=== PATIENT | male | born 1965 | race Caucasian/White ===

== ENCOUNTER 2019-09-02 20:39 | Inpatient (IN) | payer BC, SELFPAY ==
--- NOTE | ~2019-09-02 | XR_ITS ---
EXAMINATION: XR chest 1V portable EXAM DATE: 09/02/2019 21:25 INDICATION: Cough, fever and weakness. TECHNIQUE: Portable AP frontal chest x-ray was obtained. There is no prior study for comparison. FINDINGS: The lungs are clear. There are no pleural effusions. The cardiomediastinal silhouette is within normal limits. There is no pneumothorax suspected. The bones and soft tissues are unremarkab le. IMPRESSION: No acute cardiopulmonary findings. Reviewed, dictated and finalized at location A.
[2019-09-02 20:41] VITALS: BP 114/69; PULSE 99; RESP 16; TEMP 38.5; O2SAT 98
[2019-09-02 21:23] LABS: Hemoglobin 14.4 g/dL (14.0-18.0); Mean Corpuscular Hemoglobin 29.6 pg (26-34); Mean Corpuscular Volume 92.4 fl (80-100); Platelet Count Result 177 k/mm3 (150-375); Red Blood Count 4.87 M/mm3 (4.6-6.20); Red Cell Distribution Width 13.1 % (11.5-14.5); White Blood Count 20.9 K/mm3 (4.5-10.0)
--- NOTE | 2019-09-02 21:23 | ED.FEVER ---
HPI - Fever General Chief Complaint: Fever <MONIE Kong Last Filed: 09/02/19 23:47> Stated Complaint: fever weak <MONIE Kong Last Filed: 09/02/19 23:47> Time Seen by Provider: 09/02/19 20:54 <Janene Swift PA-C - Last Filed: 09/02/19 23:47> Source: patient <MONIE Kong Last Filed: 09/02/19 23:47> Mode of arrival: EMS <MONIE Kong Last Filed: 09/02/19 23:47> Limitations: no limitations <MONIE Kong Last Filed: 09/02/19 23:47> History of Present Illness HPI Narrative: This is a 53 year old male that presents to the ER for fever/chills x3 days. Also reports generlized weakness. Reports a cough today and some sore throat. Reports he has to self cath due to spinal cord injury and that his urine looks darker. Denies chest pain, shortness of breath, abdominal pain, or vomiting. <MONIE Kong Last Filed: 09/02/19 23:47> Related Data Home Medications: Home Medications Medication Instructions Recorded Confirmed Toviaz 8 mg PO DAILY 09/02/19 09/03/19 diazepam 5 mg PO QID PRN 09/02/19 09/03/19 duloxetine 60 mg PO DAILY 09/02/19 09/03/19 <MONIE Kong Last Filed: 09/02/19 23:47> Allergies/Adverse Reactions: Allergies Allergy/AdvReac Type Severity Reaction Status Date / Time No Known Allergies Allergy Verified 09/02/19 20:53 <MONIE Kong Last Filed: 09/02/19 23:47> Review of Systems Review of Systems: Narrative: CONSTITUTIONAL: Report fever, chills ENT: Reports sore throat. Denies rhinorrhea, congestion CARDIOVASCULAR: Denies chest pain RESPIRATORY: Reports cough. Denies dyspnea. GASTROINTESTINAL: Denies abdominal pain, nausea, vomiting, or diarrhea. GENITOURINARY: Denies dysuria or hematuria. SKIN: Denies rash NEUROLOGIC: Reports weakness. <Janene Swift PA-C - Last Filed: 09/02/19 23:47> All systems reviewed & are unremarkable except as noted in HPI and below <Janene Swift PA-C - Last Filed: 09/02/19 23:47> PMFSH Past Medical History Medical History: Medical History Paraplegia <Janene Swift PA-C - Last Filed: 09/02/19 23:47> Family History Family History: Family History Father Hypertension Father Acute myocardial infarction Sibling Hypertension <Janene Swift PA-C - Last Filed: 09/02/19 23:47> Social History Social History: Social History Smoking status: Never smoker Substance use: never Substance use type: does not use Gender identity (if verbalized by the patient): Male Spiritual care concerns: No Agree to blood products: Yes <Janene Swift PA-C - Last Filed: 09/02/19 23:47> Exam Narrative: Exam Narrative: GENERAL: Well-appearing, well-nourished, and in no acute distress. HEAD: Normocephalic, atraumatic. EYES: EOMI. ENT: Nares clear, no rhinorrhea or epistaxis. Mucous membranes moist. Oropharynx erythematous, without tonsillar hypertrophy exudate or other lesions. Bilateral TMs pearly pittman non-bulging NECK: Supple. No adenopathy or masses. CHEST: Clear to auscultation. No respiratory distress. No wheezes rales or rhonchi HEART: Regular rate and rhythm. No murmur heard. Normal peripheral pulses. ABDOMEN: Soft, nontender, nondistended, normal active bowel sounds. EXTREMITIES: Normal range of motion. No edema. SKIN: Warm, dry, no rash. NEURO: No focal deficits. Alert and oriented x3. PSYCH: Normal mood and affect <Janene Swift PA-C - Last Filed: 09/02/19 23:47> Course Vital Signs Vital signs: Vital Signs Temperature 38.5 C H 09/02/19 20:41 Pulse Rate 99 09/02/19 20:41 Respiratory Rate 16 09/02/19 20:41 Blood Pressure 114/69 09/02/19 20:41 Pulse Oximetry 98 09/02/19 20:41 Temperature 37.4 C 09/05/19 06:
[2019-09-02 21:33] LABS: INR 1.2; Prothrombin Time 14.5 Seconds (11.1-14.7)
[2019-09-02 21:38] LABS: Band Neutrophils Percent 6 % (0-6); Lymphocytes Absolute Manual 0.62 K/mm3 (1.1-4.5); Monocytes Absolute Manual 0.83 K/mm3 (0.1-0.90); Monocytes Percent Manual 4 % (3-9); Neutrophils Absolute Manual 19.43 K/mm3 (1.3-6.7); Neutrophils Percent Manual 87 % (46-73); Platelet Estimate Adequate (Adequate); Total Cells Counted 100
[2019-09-02 21:48] LABS: Alanine Aminotransferase 19 U/L (4-50); Albumin Level 3.9 g/dL (3.5-5.1); Alkaline Phosphatase 93 U/L (38-126); Aspartate Amino Transferase 23 U/L (17-59); Bilirubin,Total 0.9 mg/dL (0.2-1.3); Blood Urea Nitrogen 24 mg/dL (9-20); Calcium 8.4 mg/dL (8.4-10.2); Carbon Dioxide 28 mmol/L (22-30); Chloride 96 mmol/L (98-107); Estimated CRCL calculation 51 ml/min; Estimated Glomerular Filt Rate 45; Glucose 95 mg/dL (75-110); Lactate Dehydrogenase 332 U/L (313-618); Potassium 3.5 mmol/L (3.4-5.0); Sodium 134 mmol/L (137-145)
[2019-09-02] MEDS: SODIUM CHLORIDE 0.9% IV 1,000 ML 999 ML IV CONT ×2 (21:49→23:07)
[2019-09-02 22:03] LABS: CRP 31.6 mg/dL (<1.0)
[2019-09-02] MEDS: ONDANSETRON INJ 4 MG/2 ML VIAL IV PUSH (22:38)
[2019-09-02 22:44] LABS: Add Urine Microscopic? YES; Appearance Urine Clear (Clear); Bacteria Urine Trace /hpf; Bilirubin Urine Negative (Negative); Blood Urine 1+ (Negative); Color Urine Yellow (Yellow); Glucose Urine UA Negative (Negative); Ketones Urine 2+ mg/dL (Negative); Leukocyte Esterase Ur 2+ LEU/UL (Negative); Mucus Urine Rare /lpf; Nitrate Urine Negative (Negative); Protein Urine 2+ mg/dL (Negative); Squamous Epithelial Cell Urine Few /hpf (Few); Urobilinogen Urine Negative mg/dL (<2.0); WBC Urine >75 /hpf
[2019-09-02 22:46] LABS: Specific Grav Ur 1.032 (1.001-1.035)
[2019-09-02 23:16] VITALS: BP 99/56; PULSE 99; RESP 21; O2SAT 100
--- NOTE | 2019-09-03 00:50 | ADMGEN ---
This patient, Jimmie Otero, was admitted to Medical Room 256-01. Patient/family oriented to hospital policies and general routines including ID bracelet, bed and alarms, visiting hours, pain management, procedures, bathroom and other care routines, personal items, smoking policy, room service/diet, and visiting hours. Valuables list has been completed. Information on how to activate the Rapid Response Team has been discussed. Patient/Family are encouraged to report perceived risks to care and to ask questions if they do not understand what they are told or what they should do.
[2019-09-03] MEDS: SODIUM CHLORIDE 0.9% IV 1,000 ML 125 ML IV CONT ×3 (01:02→16:50)
[2019-09-03 02:07] VITALS: BP 106/57; PULSE 104; RESP 20; TEMP 36.4; O2SAT 95
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
[2019-09-03 03:32] LABS: Blood Urea Nitrogen 23 mg/dL (9-20); Calcium 7.7 mg/dL (8.4-10.2); Carbon Dioxide 27 mmol/L (22-30); Chloride 102 mmol/L (98-107); Estimated CRCL calculation 48 ml/min; Estimated Glomerular Filt Rate 42; Glucose 93 mg/dL (75-110); Lactic Acid Reflex 1.7 mmol/L (0.7-2.1); Potassium 4.1 mmol/L (3.4-5.0); Sodium 133 mmol/L (137-145)
[2019-09-03 03:33] LABS: Basophils Percent Auto 0.3 % (0.2-1.2); Eosinophils Percent Auto 0.3 % (0-4.4); Hematocrit 39.1 % (42.0-52.0); Hemoglobin 12.2 g/dL (14.0-18.0); Immature Granulocyte Absolute 0.08 K/mm3 (0.00-0.031); Immature Granulocyte Percent A 0.5 % (0-0.5); Lymphocytes Absolute Auto 1.39 K/mm3 (0.9-3.2); Mean Corpuscular HGB Conc 31.2 g/dl (32-36); Mean Corpuscular Hemoglobin 29.4 pg (26-34); Mean Corpuscular Volume 94.2 fl (80-100); Mean Platelet Volume 11.7 fl (7.4-10.4); Monocytes Absolute Auto 0.9 K/mm3 (0.1-0.6); Monocytes Percent Auto 5.6 % (2.6-8.5); Neutrophils Percent Auto 84.3 % (45.5-73.1); Platelet Count Result 145 k/mm3 (150-375); Red Blood Count 4.15 M/mm3 (4.6-6.20); Red Cell Distribution Width 13.3 % (11.5-14.5); White Blood Count 15.4 K/mm3 (4.5-10.0)
[2019-09-03 06:19] VITALS: BP 116/67; PULSE 89; RESP 18; TEMP 36.7; O2SAT 95
[2019-09-03] MEDS: ONDANSETRON INJ 4 MG/2 ML VIAL IV PUSH (07:00)
[2019-09-03] MEDS: DULOXETINE 60 MG CAPSULE.DR PO (08:40)
[2019-09-03] MEDS: ENOXAPARIN 40 MG/0.4 ML SYRINGE SUB-Q (08:40)
[2019-09-03] MEDS: DIAZEPAM 5 MG TABLET 15 MG PO (10:01)
[2019-09-03 14:00] VITALS: BP 141/78; PULSE 95; RESP 20; TEMP 36.7; O2SAT 97
--- NOTE | 2019-09-03 14:49 | PM.IMPN ---
Progress Note: A&P Assessment and Plan (1) Urinary tract infection: Qualifiers: Hematuria presence: with hematuria Urinary tract infection type: acute cystitis Qualified Code(s): N30.01 - Acute cystitis with hematuria Code(s): N39.0 - Urinary tract infection, site not specified Status: Acute Assessment and Plan: Day 1 ceftriaxone C/s pending (2) Sepsis: Qualifiers: Acute renal failure type: unspecified Sepsis acute organ dysfunction status: with acute organ dysfunction Sepsis type: sepsis due to unspecified organism Severe sepsis acute organ dysfunction type: acute renal failure Severe sepsis shock status: without septic shock Qualified Code(s): A41.9 - Sepsis, unspecified organism; R65.20 - Severe sepsis without septic shock; N17.9 - Acute kidney failure, unspecified Code(s): A41.9 - Sepsis, unspecified organism Status: Acute Assessment and Plan: Resolving (3) Acute kidney injury: Code(s): N17.9 - Acute kidney failure, unspecified Status: Acute Assessment and Plan: Due to UTI, dehydratoin Continue IVF F/u lab (4) Constipation: Qualifiers: Constipation type: unspecified constipation type Qualified Code(s): K59.00 - Constipation, unspecified Code(s): K59.00 - Constipation, unspecified Status: Acute Assessment and Plan: Dulcolax prn (5) Paraplegia: Code(s): G82.20 - Paraplegia, unspecified Status: Chronic Assessment and Plan: Clinically stable (6) Muscle spasm of both lower legs: Code(s): M62.838 - Other muscle spasm Status: Chronic Assessment and Plan: Chronic Likely worse with acute infection Subjective Date/time seen: 09/03/19 14:49 Interval history: 53 y/o paraplegic admitted 09/01 with fever, ABNL U/a. Started on ceftriaxone. Self cath's at home. Very infreqent UTI's. 09/01: Febrile earlier in the day, feeling tired but better in the afternoon. Ate for the first time in 3 days. No BM for 3 days. Review of Systems Review of Systems: All systems reviewed & are unremarkable except as noted in HPI and below Exam Narrative: Exam Narrative: HEENT: EOMI, PERRL, sclerae nonicteric, pharyngeal mucosa pink and intact NECK: No JVD CHEST: Clear to auscultation. Normal effort. HEART: NL S1/S2, regular, no murmur ABDOMEN: BS+, soft, nontender, no mass, no bruits EXTREMITIES: No cyanosis, edema, or clubbing. NEUROLOGIC: CN intact and symmetric to inspection. MUSCULOSKELETAL: UE strenght intact and symmetric. LE with weakness, muscle wasting, myoclonic jerks PSYCH: Alert. Oriented to person, place, and time. Objective Data Vital Signs Vital Signs: Vital Signs - 24 hr 09/02/19 20:41 09/02/19 23:16 09/03/19 02:07 Temperature 101.3 F H 97.5 F L Pulse Rate 99 99 104 H Respiratory Rate 16 21 H 20 Blood Pressure 114/69 99/56 L 106/57 L Pulse Oximetry 98 100 95 09/03/19 06:19 Temperature 98.1 F Pulse Rate 89 Respiratory Rate 18 Blood Pressure 116/67 Pulse Oximetry 95 Intake/Output Intake/Output: Intake & Output 08/31/19 09/01/19 09/02/19 09/03/19 23:59 23:59 23:59 23:59 Intake Total 1100 2550 Output Total 1500 Balance 1100 1050 Meds/Results Medications: Active Medications Generic Name Dose Route Start Last Admin Trade Name Freq PRN Reason Stop Dose Admin Diazepam 15 mg 09/03/19 09:28 09/03/19 10:01 Valium Po PO 15 mg DAILY PRN Administration MUSCLE SPASMS Duloxetine HCl 60 mg 09/03/19 09:00 09/03/19 08:40 Cymbalta PO 60 mg DAILY PATITO Administration Enoxaparin Sodium 40 mg 09/03/19 09:00 09/03/19 08:40 Lovenox SUB-Q 40 mg DAILY PATITO Administration Acetaminophen 1,000 mg in 100 mls @ 400 mls/hr 09/02/19 23:48 09/03/19 08:58 Ofirmev 1,000 Mg Ivpb IVPB 09/03/19 23:49 Infused Q6H PRN Infusion Mild Pain (1-3) or Fever Sodium Chloride 1,000 mls @ 125 mls/h
[2019-09-03] MEDS: BISACODYL 10 MG SUPPOSITORY RECTAL (16:25)
--- NOTE | 2019-09-03 16:26 | PC.NURSE ---
Patient stated his will bring in his Toviaz from home for use during hospitalization.
[2019-09-03 18:17] VITALS: TEMP 38.2
--- NOTE | 2019-09-03 18:52 | PC.NURSE ---
Patient's home Toviaz sent to pharmacy for verification.
--- NOTE | 2019-09-03 19:27 | PHAR ---
The patient's mickey med of Fesoterodine [Toviaz] 8 MG has been verified.
[2019-09-03 22:19] VITALS: BP 128/69; PULSE 87; RESP 16; TEMP 37.4; O2SAT 96
[2019-09-04 00:30] VITALS: TEMP 36.7
[2019-09-04] MEDS: SODIUM CHLORIDE 0.9% IV 1,000 ML 125 ML IV CONT ×3 (01:25→18:01)
[2019-09-04] MEDS: DIAZEPAM 5 MG TABLET 15 MG PO (03:41)
[2019-09-04 05:29] LABS: Hematocrit 37.8 % (42.0-52.0); Hemoglobin 12.5 g/dL (14.0-18.0); Mean Corpuscular HGB Conc 33.1 g/dl (32-36); Mean Corpuscular Hemoglobin 30.1 pg (26-34); Mean Corpuscular Volume 91.1 fl (80-100); Mean Platelet Volume 12.1 fl (7.4-10.4); Platelet Count Result 163 k/mm3 (150-375); Red Blood Count 4.15 M/mm3 (4.6-6.20); Red Cell Distribution Width 13.1 % (11.5-14.5); White Blood Count 14.2 K/mm3 (4.5-10.0)
[2019-09-04 05:31] LABS: Blood Urea Nitrogen 15 mg/dL (9-20); Calcium 7.8 mg/dL (8.4-10.2); Carbon Dioxide 25 mmol/L (22-30); Chloride 106 mmol/L (98-107); Estimated CRCL calculation 55 ml/min; Estimated Glomerular Filt Rate 49; Glucose 101 mg/dL (75-110); Potassium 3.8 mmol/L (3.4-5.0); Sodium 135 mmol/L (137-145)
--- NOTE | 2019-09-04 08:27 | PC.NURSE ---
Call to pharmacy to request patient's 0900 cymbalta and lovenox be sent to floor for administration.
[2019-09-04] MEDS: DULOXETINE 60 MG CAPSULE.DR PO (09:35)
[2019-09-04] MEDS: ACETAMINOPHEN 500 MG TABLET 1000 MG PO ×2 (09:36→15:40)
[2019-09-04] MEDS: DIAZEPAM 5 MG TABLET PO (09:36)
[2019-09-04] MEDS: ENOXAPARIN 40 MG/0.4 ML SYRINGE SUB-Q (09:37)
--- NOTE | 2019-09-04 12:18 | PM.IMPN ---
Progress Note: A&P Assessment and Plan (1) Urinary tract infection: Qualifiers: Hematuria presence: with hematuria Urinary tract infection type: acute cystitis Qualified Code(s): N30.01 - Acute cystitis with hematuria Code(s): N39.0 - Urinary tract infection, site not specified Status: Acute Assessment and Plan: Day 2 ceftriaxone C/s negative, likely due to MacroBid Likely home 09/04. (2) Sepsis: Qualifiers: Acute renal failure type: unspecified Sepsis acute organ dysfunction status: with acute organ dysfunction Sepsis type: sepsis due to unspecified organism Severe sepsis acute organ dysfunction type: acute renal failure Severe sepsis shock status: without septic shock Qualified Code(s): A41.9 - Sepsis, unspecified organism; R65.20 - Severe sepsis without septic shock; N17.9 - Acute kidney failure, unspecified Code(s): A41.9 - Sepsis, unspecified organism Status: Acute Assessment and Plan: Resolving (3) Acute kidney injury: Code(s): N17.9 - Acute kidney failure, unspecified Status: Acute Assessment and Plan: Due to UTI, dehydratoin Continue IVF F/u lab (4) Constipation: Qualifiers: Constipation type: unspecified constipation type Qualified Code(s): K59.00 - Constipation, unspecified Code(s): K59.00 - Constipation, unspecified Status: Acute Assessment and Plan: Dulcolax prn (5) Paraplegia: Code(s): G82.20 - Paraplegia, unspecified Status: Chronic Assessment and Plan: Clinically stable (6) Muscle spasm of both lower legs: Code(s): M62.838 - Other muscle spasm Status: Chronic Assessment and Plan: Chronic Likely worse with acute infection Subjective Date/time seen: 09/04/19 12:18 Interval history: 53 y/o paraplegic admitted 09/01 with fever, ABNL U/a. Started on ceftriaxone. Self cath's at home. Very infreqent UTI's. Had been taking Macrobid from his primary physician prior to entering the hospital. 09/01: Febrile earlier in the day, feeling tired but better in the afternoon. Ate for the first time in 3 days. No BM for 3 days. 09/03: Low grade fever last night. Poor sleep due to abdominal cramps after laxative, leg spasms, bladder spasms. Review of Systems Review of Systems: All systems reviewed & are unremarkable except as noted in HPI and below Exam Narrative: Exam Narrative: HEENT: EOMI, PERRL, sclerae nonicteric, pharyngeal mucosa pink and intact NECK: No JVD CHEST: Clear to auscultation. Normal effort. HEART: NL S1/S2, regular, no murmur ABDOMEN: BS+, soft, nontender, no mass, no bruits EXTREMITIES: No cyanosis, edema, or clubbing. NEUROLOGIC: CN intact and symmetric to inspection. MUSCULOSKELETAL: UE strenght intact and symmetric. LE with weakness, muscle wasting, myoclonic jerks PSYCH: Alert. Oriented to person, place, and time. Objective Data Vital Signs Vital Signs: Vital Signs - 24 hr 09/03/19 14:00 09/03/19 18:17 09/03/19 22:19 Temperature 98.0 F 100.7 F H 99.3 F Pulse Rate 95 87 Respiratory Rate 20 16 Blood Pressure 141/78 H 128/69 Pulse Oximetry 97 96 09/04/19 00:30 Temperature 98.0 F Pulse Rate Respiratory Rate Blood Pressure Pulse Oximetry Intake/Output Intake/Output: Intake & Output 09/01/19 09/02/19 09/03/19 09/04/19 23:59 23:59 23:59 23:59 Intake Total 1100 3940 1999 Output Total 2375 Balance 1100 1565 1999 Meds/Results Medications: Active Medications Generic Name Dose Route Start Last Admin Trade Name Freq PRN Reason Stop Dose Admin Acetaminophen 1,000 mg 09/04/19 09:25 09/04/19 09:36 Tylenol Tablet PO 1,000 mg Q6H PRN Administration Mild Pain (1-3) or Fever Bisacodyl 10 mg 09/03/19 15:05 Dulcolax Suppository RECTAL QAM PRN Constipation Diazepam 15 mg 09/03/19 09:28 09/04/19 03:41 Valium Po PO 15 mg DAILY PRN Administratio
[2019-09-04 12:56] LABS: Procalcitonin 6.65 ng/mL (<0.10)
[2019-09-04 14:00] VITALS: BP 119/69; PULSE 96; RESP 18; TEMP 36.9; O2SAT 96
[2019-09-04] MEDS: ZOLPIDEM TARTRATE 5 MG TABLET PO (20:34)
[2019-09-04 22:00] VITALS: BP 114/71; PULSE 83; RESP 18; TEMP 36.3; O2SAT 97
[2019-09-05] MEDS: SODIUM CHLORIDE 0.9% IV 1,000 ML 125 ML IV CONT (03:12)
[2019-09-05 06:00] VITALS: BP 156/84; PULSE 84; RESP 18; TEMP 37.4; O2SAT 96
[2019-09-05] MEDS: DULOXETINE 60 MG CAPSULE.DR PO (08:10)
[2019-09-05] MEDS: ENOXAPARIN 40 MG/0.4 ML SYRINGE SUB-Q (08:10)
[2019-09-05] MEDS: CEFDINIR 300 MG CAPSULE PO (08:11)
[2019-09-05 08:32] LABS: Hematocrit 38.7 % (42.0-52.0); Hemoglobin 12.4 g/dL (14.0-18.0); Mean Corpuscular Hemoglobin 29.7 pg (26-34); Mean Corpuscular Volume 92.8 fl (80-100); Platelet Count Result 185 k/mm3 (150-375); Red Blood Count 4.17 M/mm3 (4.6-6.20); Red Cell Distribution Width 13.2 % (11.5-14.5); White Blood Count 9.9 K/mm3 (4.5-10.0)
[2019-09-05 09:02] LABS: Blood Urea Nitrogen 9 mg/dL (9-20); Calcium 8.3 mg/dL (8.4-10.2); Carbon Dioxide 25 mmol/L (22-30); Chloride 105 mmol/L (98-107); Estimated CRCL calculation 73 ml/min; Estimated Glomerular Filt Rate > 60; Glucose 154 mg/dL (75-110); Potassium 3.8 mmol/L (3.4-5.0); Sodium 137 mmol/L (137-145)
--- NOTE | 2019-09-05 10:42 | PM.DS ---
DS: Diagnosis Admitting Diagnosis Admitting Diagnosis: Acute cystitis with hematuria Discharge Diagnosis (1) Urinary tract infection: Qualifiers: Hematuria presence: with hematuria Urinary tract infection type: acute cystitis Qualified Code(s): N30.01 - Acute cystitis with hematuria Code(s): N39.0 - Urinary tract infection, site not specified Status: Acute Assessment and Plan: Day 2 ceftriaxone C/s negative, likely due to MacroBid Likely home 09/04. (2) Sepsis: Qualifiers: Acute renal failure type: unspecified Sepsis acute organ dysfunction status: with acute organ dysfunction Sepsis type: sepsis due to unspecified organism Severe sepsis acute organ dysfunction type: acute renal failure Severe sepsis shock status: without septic shock Qualified Code(s): A41.9 - Sepsis, unspecified organism; R65.20 - Severe sepsis without septic shock; N17.9 - Acute kidney failure, unspecified Code(s): A41.9 - Sepsis, unspecified organism Status: Acute Assessment and Plan: Resolving (3) Acute kidney injury: Code(s): N17.9 - Acute kidney failure, unspecified Status: Acute Assessment and Plan: Due to UTI, dehydratoin Continue IVF F/u lab (4) Constipation: Qualifiers: Constipation type: unspecified constipation type Qualified Code(s): K59.00 - Constipation, unspecified Code(s): K59.00 - Constipation, unspecified Status: Acute Assessment and Plan: Dulcolax prn (5) Paraplegia: Code(s): G82.20 - Paraplegia, unspecified Status: Chronic Assessment and Plan: Clinically stable (6) Muscle spasm of both lower legs: Code(s): M62.838 - Other muscle spasm Status: Chronic Assessment and Plan: Chronic Likely worse with acute infection DS: Summary Hospital Course Reason for hospitalization: Urinary tract infection with dehydration Hospital Course: 53-year-old paraplegic gentleman who self catheterizes about 4 times daily presented with fevers and abnormal urinalysis. He was found to be in acute renal failure and dehydrated with a creatinine of 1.6. He was treated with IV ceftriaxone as well as IV fluids. He defervesced over the 48 hours of hospitalization. He received a total of 2 doses of ceftriaxone both at 9:00 p.m. he was tolerating his diet. His lower extremity muscle spasms had improved. He was able to sleep better. He denied pain. He wished to go home. Presume early because he was started on Macrobid before hospitalization his urine culture returned negative. However his he was responding to ceftriaxone he was discharged on cefdinir to complete a total of 14 days antibiotic therapy for complicated UTI related to self catheterization and paraplegia. Time Spent with Patient Time attestation: Total time spent providing and/or coordinating discharge services:35 min Exam Narrative: Exam Narrative: HEENT: EOMI, PERRL, sclerae nonicteric, pharyngeal mucosa pink and intact NECK: No JVD CHEST: Clear to auscultation. Normal effort. HEART: NL S1/S2, regular, no murmur ABDOMEN: BS+, soft, nontender, no mass, no bruits EXTREMITIES: No cyanosis, edema, or clubbing. NEUROLOGIC: CN intact and symmetric to inspection. MUSCULOSKELETAL: UE strenght intact and symmetric. LE with weakness, muscle wasting, myoclonic jerks PSYCH: Alert. Oriented to person, place, and time. DS: Data Data Completed and Pending Labs on day of discharge: Labs from last 24 hours 09/05/19 09/05/19 09/02/19 08:21 08:21 21:15 WBC 9.9 RBC 4.17 L Hgb 12.4 L Hct 38.7 L MCV 92.8 MCH 29.7 MCHC 32.0 RDW 13.2 Plt Count 185 MPV 12.0 H Sodium 137 Potassium 3.8 Chloride 105 Carbon Dioxide 25 BUN 9 D Creatinine 1.10 Estim Creat Clear Calc 73 Estimated GFR > 60 Glucose 154 H Calcium 8.3 L Procalcitonin 6.65 H Preliminary micro result
[2019-09-05] MEDS: ACETAMINOPHEN 500 MG TABLET 1000 MG PO (10:57)
== END 2019-09-05 12:31 | disposition home or self-care (01) | DRG 698 ==
LOC: ANHED 23:55 → ANH2MED 09-03 06:28
PROVIDERS: Physician Assistant; Admitting Provider Family Medicine; Emergency Provider Emergency Medicine; PCP Internal Medicine; Visit Provider Internal Medicine
DX: T83.518A Infection and inflammatory reaction due to other urinary catheter, initial encounter (principal); A41.9 Sepsis, unspecified organism; R65.20 Severe sepsis without septic shock; N30.01 Acute cystitis with hematuria; N17.9 Acute kidney failure, unspecified; G82.20 Paraplegia, unspecified; Z99.3 Dependence on wheelchair; S24.152S Other incomplete lesion at T2-T6 level of thoracic spinal cord, sequela; S22.049S Unspecified fracture of fourth thoracic vertebra, sequela; S22.059S Unspecified fracture of T5-T6 vertebra, sequela; V49.9XXS Car occupant (driver) (passenger) injured in unspecified traffic accident, sequela; K59.00 Constipation, unspecified; M62.838 Other muscle spasm; E86.0 Dehydration
CPT/HCPCS: 36415; 71045; 80048; 80053; 81001; 82728; 83605; 83615; 84145; 85025; 85027; 85610; 85730; 86140; 87040; 87081; 87086; 87804; 87880; 96361; 96365; 96375; 99285; A9270; J0131; J0696; J1650; J2405; J3360; J7030

== ENCOUNTER 2019-10-27 07:31 | Emergency (ER) | payer BC, SELFPAY ==
[2019-10-27 07:37] VITALS: BP 139/84; PULSE 88; RESP 18; TEMP 36.2; O2SAT 99
--- NOTE | 2019-10-27 07:57 | PC.NURSE ---
Attempted ramirez catheter placement using 14 fr coude and 16 vietnamese ramirez catheter. Unsuccessful at this time, Dr. Avila notified. Patient states uses a 16 Fr coude at home, called [facility] for catheter.
--- NOTE | 2019-10-27 08:05 | ED.GENADULT ---
HPI - General Adult General Chief complaint: Urogenital-Male Stated complaint: Unable to cath self Time Seen by Provider: 10/27/19 08:04 Source: patient Mode of arrival: wheelchair Limitations: no limitations History of Present Illness HPI narrative: 54 years old white male, history of paraplegia since 1986, self-care, last time was able to self cath himself with good urine output 6 PM last night, currently unable to cath himself, no urine output. Currently patient complaining of increasing spasm of the bladder, stomach and leg muscles. Which is similar to his history before but lately is getting worse. Patient denies any fever, chills, nausea, vomiting, diarrhea, constipation. Related Data Home Medications Medication Instructions Recorded Confirmed Toviaz 8 mg PO DAILY 09/02/19 09/03/19 diazepam 5 mg PO QID PRN 09/02/19 09/03/19 duloxetine 60 mg PO DAILY 09/02/19 09/03/19 Allergies Allergy/AdvReac Type Severity Reaction Status Date / Time No Known Allergies Allergy Verified 10/27/19 07:41 Review of Systems Review of Systems: Narrative: CONSTITUTIONAL: Denies fever, chills, or sweats. EYES: Denies visual changes, redness, or discharge. ENT: Denies rhinorrhea, congestion, sore throat, or otalgia. CARDIOVASCULAR: Denies chest pain, palpitations, or edema. RESPIRATORY: Denies cough or dyspnea. GASTROINTESTINAL: Denies abdominal pain, nausea, vomiting, or diarrhea. GENITOURINARY: Denies dysuria or hematuria. SKIN: Denies rash or itching. MUSCULOSKELETAL: Denies back pain, joint pain, or myalgia. NEUROLOGIC: Denies headache, numbness, or weakness. PSYCHIATRIC: Denies anxiety or depression. [facility] Past Medical History Medical History Paraplegia Family History Family History Father Hypertension Father Acute myocardial infarction Sibling Hypertension Social History Social History Smoking status: Never smoker Substance use: never Substance use type: does not use Gender identity (if verbalized by the patient): Male Spiritual care concerns: No Agree to blood products: Yes Exam Narrative: Exam Narrative: General appearance: Well-developed, well-nourished, no family member at the bedside Head: Normocephalic, nontraumatic Eyes: Clear conjunctiva ENT: Oropharynx normal, ears normal, nose normal Neck: Supple, nontender Chest and respiratory: Airway patent, no respiratory distress, no accessory muscle use Heart: Regular rate/rhythm Abdomen: Soft, nontender, no organomegaly, quiet bowel sounds Vascular: Normal peripheral pulses, normal capillary refill. Musculoskeletal: Normal range of motion, nontender back Neurologic: Alert and oriented ?3, paraplegic Course Course Emergency Course: Unchanged Vital Signs Vital signs: Vital Signs Temperature 36.2 C L 10/27/19 07:37 Pulse Rate 88 10/27/19 07:37 Respiratory Rate 18 10/27/19 07:37 Blood Pressure 139/84 10/27/19 07:37 Pulse Oximetry 99 10/27/19 07:37 Temperature 36.2 C L 10/27/19 07:37 Pulse Rate 67 10/27/19 08:47 Respiratory Rate 18 10/27/19 08:47 Blood Pressure 163/81 H 10/27/19 08:47 Pulse Oximetry 97 10/27/19 08:47 Medical Decision Making MDM Narrative Medical decision making narrative: Urinary tract infection is my concern. UA, Abreu catheter placement ordered. Further plan to follow Differential Diagnosis Differential Diagnosis: Urinary tract infection, urethritis, prostatitis, benign prostatic hypertrophy Vital Signs Vital Signs: Vital Signs Temperature 36.2 C L
[2019-10-27 08:45] LABS: Add Urine Microscopic? YES; Appearance Urine Clear (Clear); Bacteria Urine Trace /hpf; Bilirubin Urine Negative (Negative); Blood Urine 1+ (Negative); Color Urine Yellow (Yellow); Glucose Urine UA Negative (Negative); Ketones Urine Negative (Negative); Leukocyte Esterase Ur 3+ LEU/UL (Negative); Mucus Urine Rare /lpf; Nitrate Urine Positive (Negative); Protein Urine 1+ mg/dL (Negative); Specific Grav Ur 1.025 (1.001-1.035); Squamous Epithelial Cell Urine Rare /hpf (Few); Urobilinogen Urine Negative mg/dL (<2.0); WBC Urine >75 /hpf
[2019-10-27 08:47] VITALS: BP 163/81; PULSE 67; RESP 18; O2SAT 97
[2019-10-27] MEDS: SODIUM CHLORIDE 0.9% IV 1,000 ML 999 ML IV CONT (08:51)
[2019-10-27 08:55] LABS: Basophils Absolute Auto 0.1 K/mm3 (0.0-0.1); Basophils Percent Auto 0.5 % (0.2-1.2); Eosinophils Absolute Auto 0.2 K/mm3 (0-0.3); Eosinophils Percent Auto 1.6 % (0-4.4); Hematocrit 44.9 % (42.0-52.0); Hemoglobin 14.6 g/dL (14.0-18.0); Immature Granulocyte Absolute 0.03 K/mm3 (0.00-0.031); Immature Granulocyte Percent A 0.3 % (0-0.5); Lymphocytes Absolute Auto 2.91 K/mm3 (0.9-3.2); Lymphocytes Percent Auto 26.6 % (18.3-44.2); Mean Corpuscular HGB Conc 32.5 g/dl (32-36); Mean Corpuscular Hemoglobin 29.9 pg (26-34); Mean Platelet Volume 11.4 fl (7.4-10.4); Monocytes Absolute Auto 1.1 K/mm3 (0.1-0.6); Monocytes Percent Auto 10.4 % (2.6-8.5); Neutrophils Absolute Auto 6.6 K/mm3 (1.3-6.7); Neutrophils Percent Auto 60.6 % (45.5-73.1); Platelet Count Result 273 k/mm3 (150-375); Red Blood Count 4.88 M/mm3 (4.6-6.20); Red Cell Distribution Width 13.6 % (11.5-14.5)
[2019-10-27 09:06] LABS: Alanine Aminotransferase 26 U/L (4-50); Albumin Level 4.3 g/dL (3.5-5.1); Alkaline Phosphatase 88 U/L (38-126); Aspartate Amino Transferase 28 U/L (17-59); Bilirubin,Total 0.4 mg/dL (0.2-1.3); Blood Urea Nitrogen 16 mg/dL (9-20); Carbon Dioxide 26 mmol/L (22-30); Chloride 105 mmol/L (98-107); Estimated CRCL calculation 88 ml/min; Estimated Glomerular Filt Rate > 60; Glucose 104 mg/dL (75-110); Potassium 4.3 mmol/L (3.4-5.0); Sodium 138 mmol/L (137-145)
[2019-10-27 10:21] VITALS: BP 165/91; PULSE 68; RESP 18; O2SAT 95
== END 2019-10-27 10:23 | disposition home or self-care (01) ==
PROVIDERS: Emergency Provider Emergency Medicine; PCP Internal Medicine
DX: N39.0 Urinary tract infection, site not specified (principal); G82.20 Paraplegia, unspecified
CPT/HCPCS: 36415; 51703; 80053; 81001; 85025; 87077; 87086; 87088; 87186; 96361; 96365; 99284; J0696; J7030